=== PATIENT | male | born 1945 | race Caucasian/White ===

== ENCOUNTER 2017-08-06 19:44 | Emergency (ER) | payer MEDICARE, BC ==
[~2017-08-06] VITALS: Ht 180.3 cm; Wt 104.3 kg
[2017-08-06] MEDS ORDERED: WARFARIN SODIUM5 MG PO (19:59)
[2017-08-06] MEDS ORDERED: ZESTRIL20 MG PO (20:00)
[2017-08-06] MEDS ORDERED: ALTOPREV40 MG PO (20:00)
[2017-08-06] MEDS ORDERED: ASPIRIN EC325 MG PO (20:01)
[2017-08-06] MEDS ORDERED: METOPROLOL SUCC25 MG PO (20:01)
== END 2017-08-06 22:02 | disposition home or self-care (01) ==
LOC: ED 19:44
PROC: 0W3Q0ZZ Control Bleeding in Respiratory Tract, Open Approach (ICD-10-PCS; principal; 2017-08-06)
DX: R04.0 Epistaxis (principal); I10 Essential (primary) hypertension; E78.5 Hyperlipidemia, unspecified; Z86.718 Personal history of other venous thrombosis and embolism; Z95.5 Presence of coronary angioplasty implant and graft; Z79.899 Other long term (current) drug therapy; Z79.01 Long term (current) use of anticoagulants; Z79.82 Long term (current) use of aspirin
CPT/HCPCS: 30903; 85610; 99283